=== PATIENT | female | born 1975 ===

== ENCOUNTER → 2024-05-26 11:52 | Outpatient (REF) | payer OTHER, SELFPAY | LOC: EMG 11:52 | PROVIDERS: ATTENDING PHYSICIAN Orthopaedic Surgery Hand Surgery; FAMILY PHYSICIAN Family Medicine | DX: M25.521 Pain in right elbow (principal); R20.0 Anesthesia of skin | CPT/HCPCS: 95886; 95909 ==

== ENCOUNTER → 2025-01-29 13:07 | Outpatient (REF) | payer OTHER, SELFPAY | LOC: RAD 13:07 | PROVIDERS: ATTENDING PHYSICIAN Obstetrics & Gynecology; FAMILY PHYSICIAN Family Medicine | DX: N92.1 Excessive and frequent menstruation with irregular cycle (principal) | CPT/HCPCS: 76830; 76856 ==